=== PATIENT | male | born 1985 | race Caucasian/White ===

== ENCOUNTER 2020-05-13 10:34 | Emergency (ER) | payer OTHER ==
[2020-05-13] MEDS ORDERED: PERCOCET 5-3251 EACH PO (13:07)
== END 2020-05-13 13:38 | disposition home or self-care (01) ==
LOC: FER 10:34
DX: S82.852A Displaced trimalleolar fracture of left lower leg, initial encounter for closed fracture (principal); W19.XXXA Unspecified fall, initial encounter; Y92.009 Unspecified place in unspecified non-institutional (private) residence as the place of occurrence of the external cause
CPT/HCPCS: 73590; 73610; 96374; 96375; 96376; J1170; J2405